=== PATIENT | female | born 1995 | race Caucasian/White ===

== ENCOUNTER 2017-07-18 23:43 | Emergency (ER) | payer OTHER ==
[2017-07-18 23:54] VITALS: RESP 18
[2017-07-19 01:42] VITALS: BP 130/74; PULSE 76; TEMP 98.1; O2SAT 98
== END 2017-07-19 01:20 | disposition left against medical advice (07) ==
LOC: H.ER 23:43
DX: Z02.89 Encounter for other administrative examinations (principal)